=== PATIENT | male | born 1975 | race Caucasian/White ===

== ENCOUNTER 2017-04-07 21:41 | Emergency (ER) | payer OTHER ==
[~2017-04-07] VITALS: Ht 190.5 cm; Wt 66.7 kg
--- NOTE | ~2017-04-07 | CR230 ---
[facility] A Service [facility] RADIOLOGY TEXT RESULTS PATIENT: MARTA KIDD LOCATION: SED : 71 UNIT #: [id number] AGE: [address]: Augie Espinoza DO SEX: M ORDER DR: [id number] [place] [id number] E MR#: [id number] Acc #: [id number] NAME: MARTA KIDD : 1975 SEX: M STUDY DATE/TIME: 04/07/2017 23:04 UNIT: SED ROOM: STUDY DESCRIPTION: CR Shoulder Min 2 View Rt Attending Physician: Augie Espinoza D.O.. Ordering Physician: Augie Espinoza D.O.. Primary Care Physician: Jame Sanchez M.D. MEDICAL IMAGING REPORT This report is preliminary unless electronic signature is present. EXAM Right shoulder, 04/07/2017 HISTORY 41-year-old male in the ED complaining of right shoulder pain after loss of consciousness and fall today. Previous ORIF right humerus fracture. TECHNIQUE Three-view right shoulder series. FINDINGS [id number] fixation hardware traverses old healed right proximal humerus fracture. No acute fracture or dislocation of the right shoulder is demonstrated. IMPRESSION 1. No acute osseous abnormality. 2. Healed proximal right humerus fracture with hardware in place. Dictated by... Pierre Weiss M.D. THIS IS AN ELECTRONICALLY VERIFIED REPORT Pierre Weiss M.D. at 04/09/2017 6:02 AM CARMELITA/gordon TD: 04/09/2017 00:12 JOB #: [id number] [facility] A Service [facility] RADIOLOGY TEXT RESULTS PATIENT: MARTA KIDD LOCATION: SED : 73 UNIT #: [id number] AGE: [address]: Augie Espinoza DO SEX: M ORDER DR: MEDICAL IMAGING REPORT Page 1 of 1
--- NOTE | ~2017-04-07 | EKG ---
PATIENT: MARTA KIDD UNIT #: [id number] Ventricular Rate: 82 BPM Atrial Rate: 82 BPM P-R Interval: 166 ms QRS Duration: 94 ms Q-T Interval: 364 ms QTC Calculation(Bezet): 425 ms P [place]: 72 degrees Calculated R [place]: 61 degrees Calculated T [place]: 70 degrees Diagnosis Line: Normal sinus rhythm Diagnosis Line: Normal ECG Diagnosis Line: No previous ECGs available Diagnosis Line: Confirmed by AYE HARVEY MD ([id number]) on Diagnosis Line: 04/11/2017 11:17:44 AM INTERPRETING MD: CANDICE SHERMAN
--- NOTE | ~2017-04-07 | CR72 ---
[facility] A Service of [facility] RADIOLOGY TEXT RESULTS PATIENT: MARTA KIDD LOCATION: SED : 73 UNIT #: [id number] AGE: [address]: Augie Espinoza DO SEX: M ORDER DR: [id number] [place] [address] [id number] E MR#: [id number] Acc #: [id number] NAME: MARTA KIDD : 1975 SEX: M STUDY DATE/TIME: 04/07/2017 23:04 UNIT: SED ROOM: STUDY DESCRIPTION: CR Chest Single View Portable Attending Physician: Augie Espinoza D.O.. Ordering Physician: Augie Espinoza D.O.. Primary Care Physician: Jame Sanchez M.D. MEDICAL IMAGING REPORT This report is preliminary unless electronic signature is present. EXAM Chest x-ray, 04/07/2017 HISTORY 41-year-old male in the ED after loss of consciousness and fall. Dizziness. Right arm/shoulder pain. TECHNIQUE AP upright chest x-ray. FINDINGS The exam shows no active disease in the chest. 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 This is unchanged since 07/20/2016 and was best seen on prior chest CT 07/20/2016. The lungs are clear. No visible pneumothorax or pleural effusion. Heart size and pulmonary vascularity are normal. IMPRESSION 1. No active disease. 2. 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 3. No change since 07/20/2016. Dictated by... Pierre Weiss M.D. THIS IS AN ELECTRONICALLY VERIFIED REPORT Pierre Weiss M.D. at 04/09/2017 6:[address] [facility] A Service of [facility] RADIOLOGY TEXT RESULTS PATIENT: MARTA KIDD LOCATION: SED : 73 UNIT #: [id number] AGE: [address]: Augie Espinoza DO SEX: M ORDER DR: CARMELITA/gordon TD: 04/09/2017 00:10 JOB #: [id number] MEDICAL IMAGING REPORT Page 1 of 1
--- NOTE | ~2017-04-07 | CT52 ---
[facility] A Service [facility] RADIOLOGY TEXT RESULTS PATIENT: MARTA KIDD LOCATION: SED : 71 UNIT #: [id number] AGE: [address]: Augie Espinoza DO SEX: M ORDER DR: [id number] [place] [address] [id number] E MR#: [id number] Acc #: [id number] NAME: MARTA KIDD : 1975 SEX: M STUDY DATE/TIME: 04/07/2017 23:18 UNIT: SED ROOM: STUDY DESCRIPTION: CT Cervical Spine Wo Cont Attending Physician: Augie Espinoza D.O.. Ordering Physician: Augie Espinoza D.O.. Primary Care Physician: Jame Sanchez M.D. MEDICAL IMAGING REPORT This report is preliminary unless electronic signature is present. EXAM CT cervical spine, 04/07/2017 HISTORY 41-year-old male in the ED after loss of consciousness and fall. Dizziness, lightheadedness. Right shoulder pain. TECHNIQUE Thin-section axial CT images from the skull base through the lower portion of T2. Sagittal and coronal images were reconstructed. This CT exam was performed with one or more of the following radiation dose reduction techniques: automatic exposure control, adjustment of mA and/or kV according to patient size, and iterative reconstruction. FINDINGS No acute or chronic fracture deformity or additional osseous lesion is demonstrated. Cervical disc spaces and cervical vertebral alignment are within normal limits. Minimal to mild degenerative facet arthropathy at multiple levels. IMPRESSION No acute osseous abnormality. Minimal to mild degenerative facet arthropathy. Dictated by... Pierre Weiss M.D. THIS IS AN ELECTRONICALLY VERIFIED REPORT Pierre Weiss M.D. at 04/09/2017 6:02 AM [facility] A Service [facility] RADIOLOGY TEXT RESULTS PATIENT: MARTA KIDD LOCATION: SED : [birth year] UNIT #: [id number] AGE: [address]: Augie Espinoza DO SEX: M ORDER DR: CARMELITA/gordon TD: 04/09/2017 00:15 JOB #: [id number] MEDICAL IMAGING REPORT Page 1 of 1
--- NOTE | ~2017-04-07 | CT71 ---
[facility] A Service of [facility] RADIOLOGY TEXT RESULTS PATIENT: MARTA KIDD LOCATION: SED : [birth year] UNIT #: [id number] AGE: [address]: Augie Espinoza DO SEX: M ORDER DR: [id number] [place] [address] [id number] E MR#: [id number] Acc #: [id number] NAME: MARTA KIDD : 1975 SEX: M STUDY DATE/TIME: 04/07/2017 22:08 UNIT: SED ROOM: STUDY DESCRIPTION: CT Head Wo Contrast Attending Physician: Augie Espinoza D.O.. Ordering Physician: Augie Espinoza D.O.. Primary Care Physician: Jame Sanchez M.D. MEDICAL IMAGING REPORT This report is preliminary unless electronic signature is present. EXAM CT head, noncontrast, 04/07/2017 HISTORY 41-year-old male in the ED after a fall tonight with loss of consciousness. Complains of dizziness, lightheadedness. TECHNIQUE CT examination of the head without IV contrast. This CT exam was performed with one or more of the following radiation dose reduction techniques: automatic exposure control, adjustment of mA and/or kV according to patient size, and iterative reconstruction. FINDINGS No acute intracranial abnormality is demonstrated. No visible skull fracture. No change since 04/16/2015. There is no evidence of intracranial hemorrhage, mass, mass effect, cerebral edema, hydrocephalus or additional abnormality. IMPRESSION Negative head CT examination. No change since 04/16/2015. Dictated by... Pierre Weiss M.D. THIS IS AN ELECTRONICALLY VERIFIED REPORT Pierre Weiss M.D. at 04/09/2017 6:02 AM CARMELITA/gordon [facility] A Service of [facility] RADIOLOGY TEXT RESULTS PATIENT: MARTA KIDD LOCATION: SED : [birth year] UNIT #: [id number] AGE: [address]: Augie Espinoza DO SEX: M ORDER DR: TD: 04/09/2017 00:13 JOB #: [id number] MEDICAL IMAGING REPORT Page 1 of 1
[~2017-04-07 21:41] MED LIST: ALBUTEROL17 GM INH; FLEXERIL10 MG PO; MOBIC15 MG PO; NO MEDICATIONS; NORCO1 TAB 10/3 PO; TYLENOL #3 PO; ZANTAC150 MG PO
[2017-04-07] MEDS ORDERED: ALBUTEROL17 GM INH (21:54)
[2017-04-07 22:51] LABS: URINE SOURCE CLEAN CATCH
[2017-04-07 22:58] LABS: URINE APPEARANCE CLEAR; URINE BILIRUBIN NEG (NEG); URINE BLOOD NEG (NEG); URINE COLOR YELLOW; URINE GLUCOSE NEG (NORM); URINE KETONE NEG (NEG); URINE LEUKOCYTE ESTERASE NEG (NEG); URINE NITRATE NEG (NEG); URINE PROTEIN NEG (NEG); URINE SPECIFIC GRAVITY <=1.005 (1.003-1.035); URINE UROBILINOGEN 0.2 MG/DL (NORM)
[2017-04-07 23:01] LABS: BASOPHIL% 0.4 % (0-2.5); EOSINOPHIL# 0.1 X10e3 (0-0.7); HEMATOCRIT 43.5 % (38.0-50.0); HEMOGLOBIN 15.4 gm/dL (13.0-16.0); LYMPHOCYTE# 2.1 X10e3 (1.0-3.5); LYMPHOCYTE% 40.9 % (17.0-45.0); MEAN CELL VOLUME 89.4 FL (83-96); MEAN CORPUSCULAR HEMOGLOBIN 31.7 PG (28-34); MEAN CORPUSCULAR HGB CONC 35.4 g/dL (30-36); MEAN PLATELET VOLUME 7.1 FL (6.5-11.5); MONOCYTE# 0.4 X10e3 (0-1.0); MONOCYTE% 8.7 % (3.0-12.0); NEUTROPHIL# 2.5 X10e3 (1.5-7.1); PLATELET COUNT 153 X10e3 (140-420); RED BLOOD COUNT 4.86 X10e (3.90-5.60); RED CELL DISTRIBUTION WIDTH 13.6 % (11.0-15.5); WHITE BLOOD COUNT 5.1 X10e3 (4.0-10.5)
[2017-04-07 23:01] LABS: MICRO INDICATED? NO
[2017-04-07 23:03] LABS: POC - CKMB <1.0 ng/mL (0.0-7.9)
[2017-04-07 23:04] LABS: DIFF IND NO
[2017-04-07 23:04] LABS: POC - MYOGLOBIN 37.1 ng/mL (0.0-169.0); POC - TROPONIN <0.05 ng/mL (<=0.05)
[2017-04-07 23:07] LABS: INR 1.2; PROTHROMBIN TIME (PATIENT) 13.1 SECONDS (9.5-12.4)
[2017-04-07 23:09] LABS: AMPHETAMINE NEG (NEG); BARBITURATES NEG (NEG); BENZODIAZEPINES NEG (NEG); COCAINE NEG (NEG); MARIJUANA NEG (NEG); OPIATES NEG (NEG); TRICYCLIC ANTIDEPRESSANTS NEG (NEG); U METHADONE NEG (NEG)
[2017-04-07 23:14] LABS: PARTIAL THROMBOPLASTIN TIME 31.6 SECONDS (25.6-38.1)
[2017-04-07 23:30] LABS: ALBUMIN SERUM 4.3 g/dL (3.5-5.0); ALKALINE PHOSPHATASE 83 U/L (32-92); ALT (SGPT) 25 U/L (10-40); AST (SGOT) 31 U/L (10-42); BILIRUBIN, DIRECT 0.2 mg/dL (0.0-0.2); BILIRUBIN,INDIRECT 0.5 mg/dL (0.0-0.9); BILIRUBIN,TOTAL 0.7 mg/dL (0.2-2.0); BLOOD UREA NITROGEN <5 mg/dL (9-23); BUN/CREATININE RATIO 8.33; CALCIUM SERUM 8.8 mg/dL (8.4-10.2); CARBON DIOXIDE 23 mmol/L (22-31); CHLORIDE 94 mmol/L (100-111); CREATININE SERUM 0.6 mg/dL (0.6-1.4); GLOM FILT RATE Estimated 123.2 mL/min (>60); GLUCOSE FASTING 130 mg/dL (70-110); POTASSIUM 3.2 mmol/L (3.5-5.1); PROTEIN TOTAL SERUM 6.7 g/dL (6.0-8.3); SODIUM 129 mmol/L (135-145)
[2017-04-08 00:33] LABS: POC - CKMB <1.0 ng/mL (0.0-7.9); POC - MYOGLOBIN 33.6 ng/mL (0.0-169.0); POC - TROPONIN <0.05 ng/mL (<=0.05)
[2017-04-16] MEDS ORDERED: ROBAXIN (15:35)
[2017-04-16] MEDS ORDERED: NAPROXEN (15:35)
[2017-04-16] MEDS ORDERED: SPIRIVA18 MCG (15:35)
[2017-04-16] MEDS ORDERED: BACLOFEN10 MG (15:35)
== END 2017-04-08 01:12 | disposition home or self-care (01) ==
LOC: SED 21:41
PROVIDERS: Emergency Medicine
DX: F10.129 Alcohol abuse with intoxication, unspecified (principal); E87.6 Hypokalemia; E87.1 Hypo-osmolality and hyponatremia
CPT/HCPCS: 36415; 70450; 71010; 72125; 73030; 80048; 80076; 80307; 81003; 82553; 82947; 83874; 84484; 85025; 85610; 85730; 93005; 94640; 96365; 96375; 99284; G0480; J1885